=== PATIENT | female | born 1950 | race Caucasian/White ===

== ENCOUNTER 2017-04-01 07:22 | Day surgery (SDC) | payer OTHER ==
[~2017-04-01] VITALS: Ht 167.6 cm; Wt 77.1 kg
[~2017-04-01 07:22] MED LIST: AMLO5TAB2 PO; FLUT1INH6 IN; TRAM50TA2 PO; TRIA37.575 PO
[2017-04-01] MEDS ORDERED: IODIXANOL 320MG/ML 100ML BTL IV ONE (07:31)
[2017-04-01] MEDS ORDERED: LIDOCAINE 2%HCL (LOCAL ANESTH.) INJ 20ML MDV ONE (07:33)
[2017-04-01] MEDS ORDERED: ANGIOMAX 250 MG VIAL IV ONE (08:28)
[2017-04-01] MEDS ORDERED: fentaNYL CITRATE 100 MCG/2 ML VL ONE (08:28)
[2017-04-01] MEDS ORDERED: SODIUM CHL 0.9% 50 ML ONE (08:28)
[2017-04-01] MEDS ORDERED: MIDAZOLAM HCL 1MG/1ML-2 ML VIAL ONE (08:28)
[2017-04-01] MEDS ORDERED: EPTIFIBATIDE INJ (2MG/ML) 10ML VIAL IV ONE ×2 (08:29→09:04)
[2017-04-01] MEDS ORDERED: VERAPAMIL 2.5MG/ML INJ 2ML VIAL IV ONE (09:04)
[2017-04-01] MEDS ORDERED: ADENOSINE 90 MG/30 ML INJ IV ONE (09:16)
== END 2017-04-01 11:40 | disposition home or self-care (01) ==
LOC: CATH 07:22
PROVIDERS: ATTEND Internal Medicine
DX: I25.10 Atherosclerotic heart disease of native coronary artery without angina pectoris (principal); I99.8 Other disorder of circulatory system; R94.39 Abnormal result of other cardiovascular function study; I10 Essential (primary) hypertension; J44.9 Chronic obstructive pulmonary disease, unspecified
CPT/HCPCS: 93458; C1769; C1887; C1894; J0153; J0583; J1644; J2250; J3010; J7030; Q9967; 99152; 99153